=== PATIENT | male | born 2000 | race Caucasian/White ===

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

== ENCOUNTER 2025-01-21 10:20 | Emergency (ER) | payer BC, SELFPAY ==
--- OUTSIDE RECORDS SUMMARY | 2024-03-17 09:30 | XMS_ITS ---
Author Organization [facility] edicine Address [address] [place] [address] Care Team Providers Care Customer Logistics Manager Name Role Phone Camila Benavides Unavailable [phone] Allergies No Known Allergies Results Component Value Reference Range Notes Urinalysis, Routine Reviewed date:03/17/2024 01:42:10 PM Interpretation: Performing Lab: Notes/Report: Urine-Color yellow Appearance clear Specific [place] >=1.030 pH 6.5 Glucose neg Protein neg [...] N/A Encounters Encounter Location Date Provider Diagnosis [facility] [address] [place] [address] 03/17/2024 Camila Benavides Pre-employment health screening examination [...] * Jori FERNANDES HDOB:2000 (24 yo M)Acc No.[id number]:03/17/2024 PRE EMP HWM Patient: Jori GAINES Provider: Chau Benavides NP :2000 A ge:23 Y S ex:Male Date:03/17/2024 Address:[address] [place] [phone] Subjective: * Chief Complaints: * 1 . GT-IBC DH PRE EMP PHYS w/ PDT no [...] * A ppearance clear * S pecific [place] >=1.030 * p H 6.5 * G [...] Test, HEARS HEARING SCREEN, VISIS VISION SCREEN, 43558 URINALYSIS, AUTO, W/O SCOPE, Modifiers: QW * Follow Up: Bj morales for PDT * Billing Information: * Visit Code: * Procedure Codes: PHYSI Physical Exam. BTE Physical Demands Test. HEARS HEARING SCREEN. VISIS VISION SCREEN. 92525 URINALYSIS, AUTO, W/O SCOPE. Modifiers: QW * Electronic signature of Yasemin Benavides on 01/21/2025 at 09:28 AM CDT Sign off status: Pending * Provider: Chau Benavides, LIGHT RAIL VEHICLE OPERATOR Date: 03/17/2024 Generated for Kennedii rusty/Faibis/eTransmitting on: 01/21/2025 09:28 AM CDT History and Physical Notes * HPI (History of Present Illness) Category Sub-Category Detail Notes Category Not es ADDITIONAL COMPLAINTS Patien t presents for pre-employment physical evaluation. Medical history forms and any accompanying health records are reviewed with the patients. Examination Category Sub-Category Detail Notes Category Not es General Examination GENERAL APPEARANCE: in no ac [place] distress, well developed, well nourished HEAD: normocephalic, [...]
--- NOTE | 2025-01-21 10:22 | ECG_ITS ---
APPROVED REPORT Exam: Resting ECG HR:102 bpm ECG Measurements Heart Rate 102 AXES AK 154 P 53 QRSd 100 QRS 42 QT 315 T 59 QTc 374 Conclusion Sinus tachycardia without acute ST or T wave changes concerning for ischemia Electronically signed by : Leila Dwyer, 01/21/2025 17:52:02
[2025-01-21 10:24] VITALS: BP 135/72; PULSE 100; PULSE 103; RESP 16; TEMP 37; O2SAT 100; BMI 39.9
--- OUTSIDE RECORDS SUMMARY | 2025-01-21 10:28 | XMS_ITS | Patient Health Record ---
Author Organization [facility] edicine Address [address] [place] [address] Care Team Providers Care Sleeping Car Porter Name Role Phone Camila Benavides Unavailable [phone] Allergies No Known Allergies Results Component Value Reference Range Notes Urinalysis, Routine Reviewed date:03/17/2024 01:42:10 PM Interpretation: Performing Lab: Notes/Report: Urine-Color yellow Appearance clear Specific Street >=1.030 pH 6.5 Glucose neg Protein neg Occult Blood neg Bilirubin neg Urobilinogen,Semi-Qn 1.0 Nitrite, Urine neg Ketones neg WBC Esterase neg Reason For Referral No Information Social History Tobacco Use: Social History Observation Description Date Details (start date - stop date) Unknown Smoking Question Answer Notes Smoking Status: Uses tobacco in other forms vape s Vital Signs Heart Rate 91 /min 03/17/2024 Temperature 97.4 degrees Fahrenheit 03/17/2024 Respiratory Rate 18 /min 03/17/2024 Blood pressure diastolic 68 mm Hg 03/17/2024 Oximetry 98 % 03/17/2024 Height 70 in 03/17/2024 Blood pressure systolic 119 mm Hg 03/17/2024 Weight 279.2 lbs 03/17/2024 BMI 40.06 kg/m2 03/17/2024 Procedures Procedure Date Ordered Date Performed Result Body Sit e Vision Screening 03/17/2024 N/A BTE 03/17/2024 03/17/2024 N/A Hearing Screening 03/17/2024 03/17/2024 N/A Encounters Encounter Location Date Provider Diagnosis [employer] [facility] [address] [place] [address] 03/17/2024 Camila Benavides Pre-employment health screening examination Z02.1 Assessments Encounter Date Diagnosis (ICD Code) Assessment Notes Treatment Notes Treatment Clinical Notes Section Notes 03/17/2024 Pre-employment health screening examination (ICD-10 - Z02.1) Plan Of Treatment Pending Test Test Name Order Date Vision Screening 03/17/2024 BTE 03/17/2024 Insurance Providers Payer Name Payer Address Payer Phone Subscriber Number Group Number Insured Name Patient Relationship to Insured Coverage Start Date Coverage End Date Mo[employer]ica Pre-[employer] [place]/Gregg Jori Gonzalez Self - patient is the insured Medical (General) History Surgical History Surgery Date(Month/Year) broken right elbow with plate high schoo l
--- NOTE | 2025-01-21 10:36 | XR_ITS ---
FINAL REPORT TECHNIQUE: Single view chest CLINICAL HISTORY: left sided chest pain FINDINGS: A single view of the chest was obtained. The heart and mediastinum are within normal limits. The lungs are clear. There is no pneumothorax. IMPRESSION: No acute cardiopulmonary process. Reviewed, Interpreted and Dictated by Jeramie Quiñones MD Transcribed by Eladia Hancock Authenticated and [facility]
--- NOTE | 2025-01-21 10:37 | ED_ITS ---
<Statement entered by Leila Dwyer DO - 01/21/25 17:05> I was consulted by the GT, and we discussed the complexity of problems being addressed. I approve the treatment and management plan for this patient's care in the emergency department, thus performing a substantial portion of the medical decision making. Leila Dwyer DO Discharge Plan Disposition Patient Disposition: Home, Self-Care Condition: Good Prescriptions Prescriptions: No Action ibuprofen 800 mg tablet 800 mg PO Q8H PRN (Reason: pain) Qty: 30 1RF Referrals Follow up/Referrals: Provider,Referral, MD [Primary Care Provider, Medical] - See instructions Activity Restrictions/Add. Instructions Additional Instructions/Restrictions: Please follow-up with your PCP in the coming days, utilize ibuprofen Tylenol and other anti-inflammatory medication as needed for symptomatic leaf, please return to the emergency department any worsening signs or symptoms to include chest pain nausea vomiting, shortness of breath that does not improve with rest or medications. Clinical Impressions Clinical Impression: Atypical chest pain, Costochondritis Instructions Patient Instructions: DI for Atypical Chest Pain, DI for Costochondritis Print Language Print Language: Burmese Discharge ED Provider: Leila Dwyer General Adult HPI General Chief complaint: Chest Pain Stated complaint: Chest Pain Time Seen by Provider: 01/21/25 10:23 Mode of Arrival: Ambulatory Source of Information: Patient Limitations: No Limitations History of Present Illness HPI narrative: 24-year-old male presents to the emergency department with chest pain that is left-sided, substernal, with some radiation into his left arm, no trauma or injury per history, patient states this started around 6 AM , pain at maximal was a 1-2 out of 10, currently at 1-2 out of 10, when he is came home, he states certain positions make it better, he denies any fever chills cough congestion sore throat recent illness, denies any shortness of breath, nausea vomiting constipation diarrhea no abdominal pain, no urinary symptomatology, patient is a current every day smoker (vapes), denies any alcohol or drug use, no distress vitals notable for tachycardia otherwise unremarkable. Patient has no other real relevant past medical history, takes no other medications at home, no family history of coronary artery disease. Onset (ago): hour(s) Related Data Previous Rx's ?Medication ?Instructions ?Recorded ibuprofen 800 mg tablet 800 mg PO Q8H PRN pain #30 t abs 08/18/19 Allergies Allergy/AdvReac Type Severity Reaction Status Date / Time No Known Allergies Allergy Verified 12/04/19 11:19 [facility] Disclaimer: The information contained in this section may have been updated after the patient was seen, as this information can be updated by other users. Social History Smoking Status: Current every day smoker alcohol intake: never substance use type: denies use current occupational status: student Travel in the last 8 weeks?: None household members: family housing: house current occupational exposures/hazards: No caffeine: No Have you lived/traveled outside US in past 30 days?: No Contact w/someone who lives/traveled outside US past 30 days?: No Exposure to someone with infectious disease in past 14 days?: No Do you have a fever (greater than 100.4 F or 38 C)?: No Have you tested positive for COVID-19?: No Exposed to someone with COVID-19 in past 14 days?: No Do you have a sore throat?: No Do you have a cough?: No Do you have any weakness?: No Do you have any diarrhea?: No Are you experiencing any unusual bleeding?: No Do you have any muscle aches/pain?: No Do you have any abdominal pain?: No Are you experiencing loss of taste or smell?: No Other Medical History Have you received the Flu Vaccine for this season: No Have you received the Pneumonia Vaccine: No ROS Obtained: Yes All systems reviewed & no additional complaints except as documented Physical Exam General General appearance: alert and in no apparent distress Head Head exam: atraumatic and normocephalic Eye Eye exam: Present normal appearance, PERRL and EOMI Neck Neck exam: Present full ROM; Absent meningismus Chest Chest inspection: Present normal inspection; Absent tenderness Respiratory Respiratory exam: Absent respiratory distress, wheezes, stridor, accessory muscle use or prolonged expiratory phase Cardiovascular Cardiovascular exam: Present normal rhythm, tachycardia and other (Pulses equal and symmetric in bilateral upper and lower extremities) Abdominal Exam Abdominal exam: Absent distention, tenderness, guarding or rebound Extremities Exam Extremities exam: Absent edema Neurological Exam Neurological exam: Present alert Psychiatric Psychiatric exam: Present normal affect Skin Skin exam: Present warm and dry Medical Decision Making Medical Records Medical records reviewed: Yes I reviewed the patient's medical records. Screening: Per USPSTF and CDC recommendations, given the prevalence of disease in our region, it is our hospital?s policy to screen for HIV and viral Hepatitis for all patients aged 18 and over and those with ongoing risk factors. Armond Inquiry Pt receiving controlled substance: No Armond was queried for this patient: No Vital Signs: 01/21/25 10:24 01/21/25 10:24 01/21/25 11:00 Temperature 98.6 F Temperature Source Oral Pulse Rate 103 H 98 H Pulse Rate [Right Radial] 100 H Respiratory Rate 16 16 14 Blood Pressure 135/72 160/85 H Blood Pressure [Right Arm] 135/72 Blood Pressure Mean [Right Arm] 93 Blood Pressure Source [Right Arm] Automatic Cuff Blood Pressure Position [Right Arm] Sitting 02 Sat by Pulse Oximetry 100 100 99 Oxygen Delivery Method Room Air Lab Data Lab results reviewed: Yes I reviewed the patient's lab results. Lab Results 01/21/25 10:36: WBC 14.9 H, RBC 4.95, Hgb 14.4, Hct 44.2, MCV 89.3, MCH 29.1, MCHC 32.6, RDW 13.2, Plt Count 256, MPV 11.2 H, Neut % (Auto) 77.6, Lymph % (Auto) 15.4, Bertie % (Auto) 5.6, Eos % (Auto) 0.9, Baso % (Auto) 0.3, Neut # (Auto) 11.6 H, Lymph # (Auto) 2.3, Bertie # (Auto) 0.8, Eos # (Auto) 0.1, Baso # (Auto) 0.1, D-Dimer 0.48, Sodium 139, Potassium 4.0, Chloride 98, Carbon Dioxide 27, Anion Gap 18.0 H, BUN 16, Creatinine 1.20, Estimated Creat Clear 166, Estimated GFR 75, Est GFR ( Amer) 91, Glucose 89, Calcium 9.5, Total Bilirubin 0.8, AST 31, ALT 26, Alkaline Phosphatase 61, Troponin I < 0.01, NT-Pro-B Natriuret Pep < 20.0, Total Protein 8.8 H, Albumin 5.0, Globulin 3.8 H, Albumin/Globulin Ratio 1.3 01/21/25 10:36 01/21/25 10:36 Orders (Tests/Meds): ED MEDICATIONS Discontinued Medications Generic Name Dose Route Start Last Admin Trade Name Freq PRN Reason Stop Dose Admin Aspirin 325 mg 01/21/25 10:36 01/21/25 10:48 Aspirin 325mg Tablet PO 01/21/25 10:37 325 mg ONCE ONE Administration ORDERS Category Date Time Status XR chest portable Stat Exams 01/21/25 10:36 Completed Complete Blood Count Auto Diff Stat Lab 01/21/25 10:36 Completed Comprehensive Metabolic Panel Stat Lab 01/21/25 10:36 Completed D-Dimer Stat Lab 01/21/25 10:36 Completed HIV Combo Stat Lab 01/21/25 10:36 Received Hepatitis C Ab Qual. W/ RFX Stat Lab 01/21/25 10:36 Received NT Pro Brain Natriuretic Pep. Stat Lab 01/21/25 10:36 Completed Troponin I Q3H Lab 01/21/25 13:45 Ordered Troponin I Q3H Lab 01/21/25 16:45 Ordered Troponin I Stat Lab 01/21/25 10:36 Completed Medical Decision Narrative: 24-year-old male presents to the emergency department with chest pain that started at 6 AM today, differential diagnosis include but not limited to, ACS, PE, pneumonia, costochondritis, other musculoskeletal type chest pain, gastritis, GERD, anxiety reaction, panic attack, cardiac arrhythmia, electrolyte disturbance among others. I discussed this patient's case with the attending physician Dr. Dwyer Will obtain basic laboratory studies, troponin, EKG, proBNP, D-dimer, will give 324 mg p.o. aspirin for pain. Along with the attending physician reviewed the patient's EKG at 1022, sinus tachycardia at 102 bpm WV interval generous, QT interval within normal limits there is no STEMI. D-dimer is negative at 0.48, thus ruling out VTE/PE. Initial troponin is less than 0.01, proBNP is within normal limit. I reviewed the patient's chest x-ray along the corresponding radiologic report, no acute cardiopulmonary findings. Reexamination of the patient at approximately 11:45 AM patient remained hemodynamically stable without his time in the emergency department, tachycardia has improved, chest pain is waxing and waning, currently no chest pain at the bedside, after aspirin ministration, patient is cleared to be discharged home to self-care, patient to follow-up with PCP, and follow-up with the providers in the upcoming days, patient was given strict ED return precautions. Patient and family voiced understanding and agreement with the current treatment plan/discharge plan. Ruled out ACS, PE, other cardiac causes of chest pain, as patient's pains been going on since 6 AM waxing and waning, initial troponin was within normal limits. No need for any repeat troponin, heart score is 0, most likely musculoskeletal cause of the patient's chest pain. Critical Care Critical Care Time Critical Care Time: No
[2025-01-21 10:44] LABS: Hematocrit 44.2 % (42.0-52.0); Hemoglobin 14.4 g/dL (14.1-18.0); Immature Granulocytes % 0.2 %; Mean Corpuscular HGB Conc 32.6 g/dL (31.8-35.4); Mean Corpuscular Hemoglobin 29.1 pg (27.0-31.2); Mean Corpuscular Volume 89.3 fl (80-94); Nucleated Red Blood Cells % 0 %; Platelet Count 256 K/mm3 (142-424); Red Blood Count 4.95 M/mm3 (4.60-6.20); Red Cell Distribution Width-SD 43.2 fL; White Blood Count 14.9 K/mm3 (4.8-10.8)
[2025-01-21] MEDS: ASPIRIN 325MG TABLET 325 MG PO (10:48)
[2025-01-21 10:56] LABS: Alanine Aminotransferase 26 U/L (12-78); Albumin Level 5.0 g/dl (3.5-5.0); Albumin/Globulin Ratio 1.3 (1.1-1.8); Alkaline Phosphatase 61 U/L (38-126); Anion Gap 18.0 mEq/L (5-15); Aspartate Amino Transferase 31 U/L (17-59); Bilirubin,Total 0.8 mg/dl (0.2-1.3); Blood Urea Nitrogen 16 mg/dl (9-20); Calcium 9.5 mg/dl (8.4-10.2); Carbon Dioxide 27 mmol/L (22.0-30.0); Chloride 98 mmol/L (98-107); Creatinine Clearance Estimated 166 mL/min (50-200); Creatinine,Serum 1.20 mg/dl (0.66-1.25); Estimated Glomerular Filt Rate 75 ml/min (>60); GFR (African American) 91 ML/MIN (>60); Globulin 3.8 g/dL (1.3-3.2); Glucose 89 mg/dl (74-100); Potassium 4.0 mmoL/L (3.5-5.1); Sodium 139 mmol/L (136-145); Total Protein,Serum 8.8 g/dl (6.3-8.2)
[2025-01-21 11:00] VITALS: BP 160/85; PULSE 98; RESP 14; O2SAT 99
[2025-01-21 11:01] LABS: D-Dimer 0.48 ug/mL (0.0-0.5)
[2025-01-21 11:09] LABS: NT Pro Brain Natriuretic Pep. < 20.0 pg/mL (0-125)
[2025-01-21 11:13] LABS: Troponin I < 0.01 ng/ml (0.00-0.034)
[2025-01-21 12:07] VITALS: BP 152/93; PULSE 84; RESP 15; TEMP 36.7; O2SAT 99
[2025-01-21 12:24] LABS: Hepatitis C Ab Qual. W/ RFX NEGATIVE (Negative)
== END 2025-01-21 12:14 | disposition home or self-care (01) ==
PROVIDERS: Physician Assistant; Emergency Provider Student in an Organized Health Care Education/Training Program
DX: R07.89 Other chest pain (principal); M94.0 Chondrocostal junction syndrome [Tietze]; R00.0 Tachycardia, unspecified; F17.290 Nicotine dependence, other tobacco product, uncomplicated
CPT/HCPCS: 71045; 80053; 83880; 84484; 85025; 85378; 86803; 87389; 93005; 99284

== ENCOUNTER 2025-01-26 11:40 | Outpatient (CLI) | payer BC, SELFPAY ==
--- NOTE | 2025-01-26 11:42 | XR_ITS ---
FINAL REPORT CLINICAL HISTORY: left upper arm pain COMPARISON: None FINDINGS: Two views of the left humerus show no evidence of an acute, displaced fracture or dislocation of the visualized bony architecture. The joint spaces appear normal. IMPRESSION: Unremarkable exam. Reviewed, Interpreted and Dictated by Jeramie Quiñones MD Transcribed by Rubina Kapadia Authenticated and [facility]
--- NOTE | 2025-01-26 11:42 | XR_ITS ---
FINAL REPORT CLINICAL HISTORY: left shoulder pain COMPARISON: None FINDINGS: Three views of the left shoulder show no evidence of acute displaced fracture or dislocation of the visualized bony architecture. The joint spaces appear normal. IMPRESSION: Unremarkable exam. Reviewed, Interpreted and Dictated by Jeramie Quiñones MD Transcribed by Rubina Kapadia Authenticated and [facility] [place]
--- OUTSIDE RECORDS SUMMARY | 2025-01-26 11:42 | XMS_ITS | Clinical Summary ---
Author Organization [facility] Address [address] [place] [address] Care Team Providers Care Cook Railroad Name Role Phone Masoud Figueroa M.D. Primary Care Provider [phone] Source Comments [facility] is fully rolled out with thefollowing exceptions:General Clinical Research [facility] Social History Tobacco Use Types Packs/Day Years Used Date Smoking Tobacco: Never Assessed Sex and Gender Information Value Date Recorded Sex Assigned at Not on file Legal Sex Male 5:29 AM EST Gender Identity Not on file Sexual Orientation Not on file Plan of Treatment Health Maintenance Due Date Last Done Comments MMR IMMUNIZATION (1 of 1 - S tandard series) 2002 DTAP/Tdap/Td IMMUNIZATION (1 - Tdap) 2008 VARICELLA IMMUNIZATION (1 of 2 - 13+ 2-dose series) 2014 HPV IMMUNIZATION (1 - Male 3 -dose series) 2016 MENINGOCOCCAL B VACCINE (1 o f 2 - Standard) 2017 HEPATITIS B IMMUNIZATION (1 of 3 - 19+ 3-dose series) 2020 COVID-19 Vaccine (1 - 2023-2 5 season) 2024 AMB SEASONAL FLU VACCINE (#1) 03/09/2025 HIB IMMUNIZATION Aged Out No longer e ligible based on patient's age to complete this topic IPV IMMUNIZATION Aged Out No longer e ligible based on patient's age to complete this topic MCV4 IMMUNIZATION Aged Out No longer eligible based on patient's age to complete this topic PNEUMOCOCCAL IMMUNIZATION Aged Out No longer eligible based on patient's age to complete this topic Respiratory Syncytial Virus (RSV) <20mo Aged Out No longer eligible b ased on patient's age to complete this topic Insurance MINDA BRASWELL Care Teams Cook Railroad Relationship Specialty Start Date End Date Masoud Figueroa M.D. [address] [place] [address] [address] [place] [address] PCP - General 07/16/08
[2025-01-26 13:32] LABS: Hematocrit 44.4 % (42.0-52.0); Hemoglobin 14.6 g/dL (14.1-18.0); Immature Granulocytes % 0.4 %; Mean Corpuscular HGB Conc 32.9 g/dL (31.8-35.4); Mean Corpuscular Hemoglobin 29.4 pg (27.0-31.2); Mean Corpuscular Volume 89.5 fl (80-94); Nucleated Red Blood Cells % 0 %; Platelet Count 228 K/mm3 (142-424); Red Blood Count 4.96 M/mm3 (4.60-6.20); Red Cell Distribution Width-SD 43.3 fL; White Blood Count 11.4 K/mm3 (4.8-10.8)
[2025-01-26 13:58] LABS: C-Reactive Protein 6.5 mg/L (0-4)
[2025-01-26 14:10] LABS: 25-OH Vitamin D, Total 18.6 ng/mL (30-100)
[2025-01-26 14:13] LABS: Free T4 (Free Thyroxine) 1.16 ng/dl (0.78-2.19)
[2025-01-26 14:26] LABS: Thyroid Stimulating Hormone 1.59 uIU/mL (0.465-4.68)
[2025-01-26 14:45] LABS: Vitamin B12 520 pg/mL (239-931)
== END 2025-01-26 23:59 | disposition home or self-care (01) ==
LOC: RAD 11:41
PROVIDERS: PCP Nurse Practitioner Family; Visit Provider Nurse Practitioner Family
DX: M25.512 Pain in left shoulder (principal); M79.622 Pain in left upper arm; M94.0 Chondrocostal junction syndrome [Tietze]; R07.89 Other chest pain; M62.830 Muscle spasm of back; G47.33 Obstructive sleep apnea (adult) (pediatric); R53.83 Other fatigue
CPT/HCPCS: 73030; 73060; 82306; 82607; 84439; 84443; 85025; 85651; 86140

== ENCOUNTER 2025-02-04 07:57 | Outpatient (RCR) | payer BC, SELFPAY ==
--- NOTE | 2025-02-04 08:57 | HMH.OTOPEV ---
OT Inpatient Evaluation Rehab OT Outpatient Eval Start: 02/04/25 08:06 Freq: Status: Active Protocol: Document 02/04/25 08:06 PRASHANT (Rec: 02/04/25 08:57 PRASHANT [id number]) E-signed By Carmen Ly, OT Outpatient Therapy Subjective History Subjective History Pt is a 24 yr old male who presents to initial OT evaluation due to L shoulder pain. 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 Pt reported they had no significant injury or accident for pain. Pt reported pain has been coming on for quite some time now. pt reported they had an X-ray and no significant findings. Pt reported they are R hand dom. pt reported they have pain that radiates from middle of chest down to arm. pt reported sleep is impacted. ST. Palpation Tenderness: decrease palpation tenderness in L shoulder at AC and SC joint 2. ROM: L shoulder Abd:170, Flex:175, IR- 70 3. Strength: L shoulder 4-/5 MMT 4. Endurance: completion of TE for 15 mins prior to rest 5. Improve tolerance to work activities 6. Decrease subjective pain: 5/10 at worst 7. Patient to be Ind with HEP: [place] 8. Improve Quick Dash Score: Activities: 14 or below, Work: 6 or below LT. Palpation Tenderness: decrease palpation tenderness in L shoulder at AC and SC joint 2. ROM: L shoulder Abd:180, Flex:180 3. Strength: L shoulder 4+/5 MMT 4. Endurance: completion of TE for 15 mins prior to rest 5. Restore ability to lift objects to waist level 6. Return to recreational activities 7. Improve tolerance to work activities 8. Decrease subjective pain: 3/10 at worst 9. Patient to be Ind with advanced HEP: advanced strengthening and exercising 10. Improve Quick Dash Score: Activities: 12 or below, Work: 4 or below New diagnosis of No cancer in past 12 months? Chief Complaint Pain,Clicks,Weakness,Decreased Clinical Project Manager Strength Symptom Type Ache Symptoms Relieved By Rest/Positioning,OTC Meds Symptoms Aggravated Physical Activity,Lifting By Prior Functional None Limitations Current Functional Reaching,Lifting,Sleeping,Recreation Activity Limitations Symptom Description Pain at Rest,Activity Dependent Level of pain today 1 (0-10) Pain scale - at its 0 best (0-10) Pain scale - at its 6 worst (0-10) Shoulder/Elbow Eval Shoulder Objective Measurements Posture Shoulder Posture (L) Rounded,(R) Rounded Sitting Position Shoulder Posture (L) Rounded,(R) Rounded Standing Position Shoulder ROM Left Shoulder ROM Pain Limitations Shoulder Abduction 160 Active Range of Motion (degrees) Shoulder Flexion 170 Active Range of Motion (degrees) Query Text: Shoulder External 70 Rotation Active Range of Motion ( degrees) Shoulder Internal 65 Rotation Active Range of Motion ( degrees) pain with active ROM left shoulder exam standard pain with passive left ROM shoulder exam standard full ROM shoulder left exam standard Shoulder MMT Shoulder Abduction 3 Fair Strength Grade Shoulder Flexion 3 Fair Strength Grade Shoulder External 3 Fair Rotation Strength Grade Shoulder Internal 3 Fair Rotation Strength Grade Shoulder Strength Sitting Patient Testing Position Shoulder Special Tests Acromioclavicular Positive Left Joint Compression Test Sternoclavicular Positive Left Joint Stress Test Elbow Objective Measurements QuickDASH Activities Please rate your ability to do the following activities in the last week by selecting the number below the appropriate response. 1. Open a tight or No difficulty new jar. 2. Do heavy No difficulty urology surgeon (e. g., wash chapman, floors). 3. Carry a shopping No difficulty bag or briefcase. 4. Wash your back. No difficulty 5. Use a knife to No difficulty cut food. 6. Recreational No difficulty activities in which you take some force or impact through your arm, shoulder, or hand (e.g., golf, hammering, tennis, etc.). 7. During the past Not at all week, to what extent has your arm, shoulder or hand problem interfered with your normal social activities with family, friends , neighbors or groups? 8. During the past Slightly limited week, were you limited in your work or other regular daily activites as a result of your arm, shoulder or hand problem? 9. Arm, shoulder or Moderate hand pain. 10. Tingling (pins None and needles) in your arm, shoulder or hand. 11. During the past Mild difficulty week, how much difficulty have you had sleeping because of the pain in your arm, shoulder or hand? Quick DASH 15 Work Module (optional) The following questions ask about the impact of your arm, shoulder or hand problem on your ability to work (including homemaking if that is your main work role). Please indicate what [employer] your job/work is: Do you work? Yes 1. Using your usual No difficulty technique for your work? 2. Doing your usual Mild difficulty work because of arm, shoulder or hand pain? 3. Doing your work Mild difficulty as well as you would like? 4. Spending your Mild difficulty usual amount of time doing your work? Quick Dash Work 7 Module Score OT Outpatient Assessment Impairments Problems/Impairments Palpation Tenderness,Impaired Range of Motion,Impaired Strength,Impaired Endurance,Impaired Lifting,Impaired Recreational Activities,Impaired Work Activities, Subjective C/O Pain Prognosis Rehab Potential Good Clinical Impression Consistent with Yes Diagnosis Short Term Goals Number of Weeks 3 Decreased Palpation Yes: decrease palpation tenderness in L shoulder at AC Tenderness and SC joint Increase Range of Yes: L shoulder Abd:170, Flex:175, IR- 70 Motion Increase Strength Yes: L shoulder 4-/5 MMT Increase Endurance Yes: completion of TE for 15 mins prior to rest Improve Tolerance to Yes Work Activities Decrease Subjective Yes: 5/10 at worst C/O Pain Patient to be Ind w/ Yes: [place] HEP Improve Quick Dash Yes: Yes, activities: 14 or below, work 6 or below Score Fpc Goals Number of Weeks 6 Decreased Palpation Yes Tenderness Increase Range of Yes: L shoulder: Abd- 180, Flex: 180 Motion Increase Strength Yes: L shoulder 4+/5 MMT Increase Endurance Yes: completion of TE 20 mins prior to rest Restore Ability to Yes Lift Objects to Waist Level Return to Yes Recreational Activities Improve Tolerance to Yes Work Activities Decrease Subjective Yes: 3/10 at worst C/O Pain Patient to be Ind w/ Yes: advanced strengthening and exercises Advanced HEP Improve Quick Dash Yes: Yes, Activities: 12 or below, Work: 4 or below Score Outpatient Therapy Plan of Care Treatment Plan May Include Therapeutic Exercise Yes Including Home Exercise Program Manual Therapy Yes Techniques Neuromuscular Re- Yes education Therapeutic Yes Activities to Return to Previous Functional/Work Level ADL/Self Care Yes Education Thermal Modalities Yes Electrical Yes Stimulation Ultrasound/ Yes Phonophoresis Iontophoresis Yes Parrafin Yes Orthotics/Bracing/ Yes Splinting Group Therapy for Yes Medicare Eval/Re-Eval Yes Frequency Times per week 1-2x/wk Duration Number of Weeks 6 wks Addendums This patient is a No candidate for social or vocational rehab ? Patient/Guardian Yes verbally acknowledges understanding of treatment program and consents to further treatment? Patient/Guardian Yes verbally acknowledges understanding of diagnosis, prognosis and goals for treatment? Eval Complexity OT Charge 63369 - Moderate Complexity PHYSICIAN CERTIFICATION: I certify the specified therapy services for Jori Grey Carlos are required, authorized, and reviewed every 30 days.
== END 2025-02-04 23:59 | disposition home or self-care (01) ==
LOC: OT 07:57
PROVIDERS: Visit Provider Nurse Practitioner Family
DX: M79.622 Pain in left upper arm (principal); M25.512 Pain in left shoulder
CPT/HCPCS: 97166

== ENCOUNTER 2025-02-24 11:00 | Outpatient (RCR) | payer BC, SELFPAY | END 2025-02-24 23:59 | disposition home or self-care (01) | LOC: OT 11:00 | PROVIDERS: Visit Provider Nurse Practitioner Family | DX: M25.512 Pain in left shoulder (principal) | CPT/HCPCS: 97014; 97110; 97140; G0283 ==

== ENCOUNTER 2025-02-25 10:52 | Outpatient (CLI) | payer BC, SELFPAY ==
--- NOTE | 2025-02-25 10:56 | XR_ITS ---
FINAL REPORT TECHNIQUE: Supine and upright views of the abdomen were obtained. CLINICAL HISTORY: abd pain COMPARISON: None FINDINGS: SPINE AND UPRIGHT, ABDOMEN: There is mild scoliosis present measuring 10 degrees and convex to the right. The bowel gas pattern is nonspecific, with mild to moderate stool in the right colon. No abnormal calcifications are identified. IMPRESSION: Nonspecific bowel gas pattern with mild to moderate stool in the right colon. Reviewed, Interpreted and Dictated by Jet Jessica MD Transcribed by Nadia Pagan Authenticated and [facility]
--- OUTSIDE RECORDS SUMMARY | 2025-02-25 11:09 | XMS_ITS | Clinical Summary ---
Author Organization [facility] Address [address] [place] [address] Care Team Providers Care Medical Case Worker Name Role Phone Masoud Figueroa M.D. Primary Care Provider [phone] Source Comments [facility] is fully rolled out with thefollowing exceptions:General Clinical Research [facility] Social History Tobacco Use Types Packs/Day Years [...] season) 2024 AMB SEASONAL FLU VACCINE (#1) 05/09/2025 HIB IMMUNIZATION Aged Out No longer e [...] to complete this topic Insurance [facility] [place] Address: [facility] [id number] [place] [address] Care Teams Medical Case Worker Relationship Specialty Start Date End Date Masoud Figueroa M.D. [address] [place] [address] [address] [place] [address] PCP - General 07/16/08
== END 2025-02-25 23:59 | disposition home or self-care (01) ==
LOC: RAD 10:53
PROVIDERS: PCP Nurse Practitioner Family; Visit Provider Nurse Practitioner Family
DX: K59.00 Constipation, unspecified (principal); K21.9 Gastro-esophageal reflux disease without esophagitis; R07.9 Chest pain, unspecified; R93.3 Abnormal findings on diagnostic imaging of other parts of digestive tract
CPT/HCPCS: 74019

== ENCOUNTER 2025-03-02 08:08 | Outpatient (CLI) | payer BC, SELFPAY ==
--- OUTSIDE RECORDS SUMMARY | 2024-03-17 09:30 | XMS_ITS ---
Author Organization [employer] [facility] edicine Address [address] [place] [address] Care Team Providers Care Rotary Screen Printing Machine Operator Name Role Phone Camila Benavides Unavailable [phone] Allergies No Known Allergies Results Component Value Reference Range Notes Urinalysis, Routine Reviewed date:03/17/2024 01:42:10 PM Interpretation: Performing Lab: Notes/Report: Urine-Color yellow Appearance clear Specific [place] >=1.030 pH 6.5 Glucose neg Protein neg [...] N/A Encounters Encounter Location Date Provider Diagnosis [employer] [facility] [address] [facility] [place] [address] 03/17/2024 Camila Benavides Pre-employment health screening examination [...] * Jori FERNANDES HDOB:2000 (24 yo M)Acc No.[id number]:03/17/2024 PRE EMP HWM Patient: Jori GAINES Provider: Chau Benavides NP :2000 A ge:23 Y S ex:Male Date:03/17/2024 Address:[address] [place] [phone] Subjective: * Chief Complaints: * 1 . [...] * A ppearance clear * S pecific [place] >=1.030 * p H 6.5 * G [...] Test, HEARS HEARING SCREEN, VISIS VISION SCREEN, 03221 URINALYSIS, AUTO, W/O SCOPE, Modifiers: QW * Follow Up: Bj morales for PDT * Billing Information: * Visit Code: * Procedure Codes: PHYSI Physical Exam. BTE Physical Demands Test. HEARS HEARING SCREEN. VISIS VISION SCREEN. 35932 URINALYSIS, AUTO, W/O SCOPE. Modifiers: QW * Electronic signature of Yasemin Benavides on 03/02/2025 at 07:12 AM CDT Sign off status: Pending * Provider: Chau Benavides, INFORMATICS NURSE SPECIALIST Date: 03/17/2024 Generated for Reagan ojeda/Faibis/eTransmitting on: 0 03/02/2025 07:12 AM CDT History and Physical Notes * HPI (History of Present Illness) Category Sub-Category Detail Notes Category Not es ADDITIONAL COMPLAINTS Patien t presents for pre-employment physical evaluation. Medical history forms and any accompanying health records are reviewed with the patients. Examination Category Sub-Category Detail Notes Category Not es General Examination GENERAL APPEARANCE: in no ac [place] distress, well developed, well nourished HEAD: normocephalic, [...]
--- NOTE | 2025-03-02 08:00 | US_ITS ---
FINAL REPORT TECHNIQUE: Sonographic images of the abdomen were obtained in all four quadrants. CLINICAL HISTORY: abd pain COMPARISON: None FINDINGS: LIVER: Homogeneous. No focal hepatic lesion or intrahepatic biliary dilatation. GALLBLADDER: There is sludge present in the gallbladder, without shadowing stones. No pericholecystic fluid collection or gallbladder wall thickening. The common duct measures 2 mm. This is within normal limits for age. PANCREAS: Not well-seen secondary to overlying bowel gas. RIGHT KIDNEY: 9.4 cm. No hydronephrosis, mass or stone. LEFT KIDNEY: 11 cm. No hydronephrosis, mass or stone. SPLEEN: 12.1 cm. No focal splenic lesion. AORTA/IVC: No abdominal aortic aneurysm. Visualized IVC within normal limits. OTHER: No ascites. IMPRESSION: Sludge is present in the gallbladder without evidence of shadowing stones or biliary ductal dilatation. Reviewed, Interpreted and Dictated by Hui Morales MD Transcribed by Nadia Pagan Authenticated and [facility]
--- OUTSIDE RECORDS SUMMARY | 2025-03-02 08:12 | XMS_ITS | Clinical Summary ---
Author Organization [facility] Address [address] [place] [address] Care Team Providers Care Security Threat Analyst Name Role Phone Masoud Figueroa M.D. Primary Care Provider [phone] [phone] Source Comments [facility] is fully rolled out with thefollowing exceptions:General Clinical Research [facility] Social History Tobacco Use Types Packs/Day Years [...] this topic Insurance MINDA BRASWELL Care Teams Security Threat Analyst Relationship Specialty Start Date End Date Masoud Figueroa M.D. [address] [place] [address] E [address] [place] Richardson [id number] PCP - General 07/16/08
--- OUTSIDE RECORDS SUMMARY | 2025-03-02 08:12 | XMS_ITS | Patient Health Record ---
Author Organization [facility] Address [address] [place] [address] Care Team Providers Care Supervisor Hide House Name Role Phone Camila Benavides Unavailable [phone] Allergies No Known Allergies Results Component Value Reference Range Notes Urinalysis, Routine Reviewed date:03/17/2024 01:42:10 PM Interpretation: Performing Lab: Notes/Report: Urine-Color yellow Appearance clear Specific [place] >=1.030 pH 6.5 Glucose neg Protein neg [...] Ordered Date Performed Result Body Sit e Hearing Screening 03/17/2024 03/17/2024 N/A BTE 03/17/2024 03/17/2024 N/A Vision Screening 03/17/2024 N/A Encounters Encounter Location Date Provider Diagnosis [facility] [address] [place] [address] 03/17/2024 Camila Benavides Pre-employment health screening examination [...] Start Date Coverage End Date Mojica Pre-Emp [place] Santos/Gregg [phone] Jori Gonzalez Self - patient is the insured Medical (General) History Surgical History Surgery Date(Month/Year) broken right elbow with plate high schoo l
== END 2025-03-02 23:59 ==
LOC: RAD 08:09
PROVIDERS: PCP Nurse Practitioner Family; Visit Provider Nurse Practitioner Family
DX: R10.9 Unspecified abdominal pain (principal); R93.2 Abnormal findings on diagnostic imaging of liver and biliary tract
CPT/HCPCS: 76700

== ENCOUNTER 2025-03-13 09:56 | Outpatient (CLI) | payer BC, SELFPAY ==
--- OUTSIDE RECORDS SUMMARY | 2024-03-17 09:30 | XMS_ITS ---
Author Organization [facility] edicine Address [address] [place] [address] Care Team Providers Care Central Sterile Tech Name Role Phone Camila Benavides Unavailable [phone] Allergies No Known Allergies Results Component Value Reference Range Notes Urinalysis, Routine Reviewed date:03/17/2024 01:42:10 PM Interpretation: Performing Lab: Notes/Report: Urine-Color yellow Appearance clear Specific [place] >=1.030 pH 6.5 Glucose neg Protein neg Occult Blood neg Bilirubin neg Urobilinogen,Semi-Qn 1.0 Nitrite, Urine neg Ketones neg WBC Esterase neg REASON FOR VISIT GT-IBC PRE EMP PHYS w/ PDT no DOT D/S, * Moijca Pre Emp NO DRUG SCREEN, * Mojica [...] N/A Encounters Encounter Location Date Provider Diagnosis [facility] [address] [place] [address] 03/17/2024 Camila Benavides Pre-employment health screening examination [...] * Jori FERNANDES HDOB:2000 (24 yo M)Acc No.[id number]:03/17/2024 PRE EMP HWM Patient: Jori GAINES Provider: Chau Benavides NP :2000 A ge:23 Y S ex:Male Date:03/17/2024 Address:[address] [place] [phone] Subjective: * Chief Complaints: * 1 . [...] * A ppearance clear * S pecific [place] >=1.030 * p H 6.5 * G [...] Test, HEARS HEARING SCREEN, VISIS VISION SCREEN, 12558 URINALYSIS, AUTO, W/O SCOPE, Modifiers: QW * Follow Up: Bj morales for PDT * Billing Information: * Visit Code: * Procedure Codes: PHYSI Physical Exam. BTE Physical Demands Test. HEARS HEARING SCREEN. VISIS VISION SCREEN. 55593 URINALYSIS, AUTO, W/O SCOPE. Modifiers: QW * Electronic signature of Yasemin Benavides on 03/13/2025 at 08:58 AM CDT Sign off status: Pending * Provider: Chau Benavides, MAIL PROCESSOR Date: 03/17/2024 Generated for Kennedii rusty/Famyrag/eTransmitting on: 03/13/2025 08:58 AM CDT History and Physical Notes * [...]
--- OUTSIDE RECORDS SUMMARY | 2025-03-13 09:58 | XMS_ITS | Patient Health Record ---
Author Organization [facility] Address [address] [place] [address] Care Team Providers Care Microcomputer Technician Name Role Phone Camila Benavides Unavailable [phone] Allergies No Known Allergies Results Component Value Reference Range Notes Urinalysis, Routine Reviewed date:03/17/2024 01:42:10 PM Interpretation: Performing Lab: Notes/Report: Urine-Color yellow Appearance clear Specific [place] >=1.030 pH 6.5 Glucose neg Protein neg [...] N/A Encounters Encounter Location Date Provider Diagnosis [facility] [address] [place] [address] 03/17/2024 Camila Benavides Pre-employment health screening examination [...] Start Date Coverage End Date Mojica Pre-Emp [place] Santos/Gregg Jori Gonzalez Self - patient is the insured Medical (General) History Surgical History Surgery Date(Month/Year) broken right elbow with plate high schoo l
--- OUTSIDE RECORDS SUMMARY | 2025-03-13 09:58 | XMS_ITS | Clinical Summary ---
Author Organization [facility] Address [address] [place] [address] Care Team Providers Care Notcher Name Role Phone Masoud Figueroa M.D. Primary Care Provider [phone] Source Comments [facility] is fully rolled out with thefollowing exceptions:General Clinical Research [facility] Social History Tobacco Use Types Packs/Day Years [...] of 3 - 19+ 3-dose series) 2020 AMB SEASONAL FLU VACCINE (#1) 03/09/2025 COVID-19 Vaccine ( - 2023-2 5 season) 2025 HIB IMMUNIZATION Aged Out No longer e [...] this topic Insurance MINDA BRASWELL Care Teams Notcher Relationship Specialty Start Date End Date Masoud Figueroa M.D. [address] [place] [address] [address] [place] Richardson [id number] PCP - General 07/16/08
--- NOTE | 2025-03-13 10:00 | NM_ITS ---
FINAL REPORT CLINICAL HISTORY: gallbladder sludge, abd pain COMPARISON: None FINDINGS: Sequential anterior projection images of the abdomen were obtained after the intravenous injection of 8.23 mCi technetium 99m Choletec. There is normal uptake of radiotracer by the liver. The bile ducts are visualized by 10 minutes. Gallbladder activity is seen by 5 minutes. Bowel activity is noted by 45 minutes. After 1 hour, 8.23 ?g of CCK was injected intravenously for calculation of gallbladder ejection fraction. The gallbladder ejection fraction is 96%, which is within normal limits. IMPRESSION: No evidence of cystic duct or bile duct obstruction. Normal gallbladder ejection fraction of 96%. Reviewed, Interpreted and Dictated by Hui Morales MD Transcribed by Nadia Pagan Authenticated and [facility]
[2025-03-13] MEDS: SINCALIDE 2.5 MCG in 0.9 % SODIUM CHLORIDE 50 ML 100 MCG IV (11:54)
[2025-03-13] MEDS: SODIUM CHLORIDE 0.9% 10ML SYR (RAD ONLY) 10 ML IV (11:59)
[2025-03-13] MEDS: ISOTOPE CHOLETECH;1 DOSE (UP TO 15 MCI) IV (11:59)
== END 2025-03-13 23:59 | disposition home or self-care (01) ==
LOC: RAD 09:56
PROVIDERS: PCP Nurse Practitioner Family; Visit Provider Nurse Practitioner Family
DX: K21.9 Gastro-esophageal reflux disease without esophagitis (principal); K82.8 Other specified diseases of gallbladder; R10.9 Unspecified abdominal pain; R07.9 Chest pain, unspecified
CPT/HCPCS: 78227; A9537; J2805

== ENCOUNTER 2025-03-23 11:15 | Outpatient (CLI) | payer BC, SELFPAY ==
--- OUTSIDE RECORDS SUMMARY | 2025-03-23 11:17 | XMS_ITS | Clinical Summary ---
Author Organization [facility] Address [address] [place] [address] Care Team Providers Care Data Recovery Planner Name Role Phone Masoud Figueroa M.D. Primary Care Provider [phone] [phone] Source Comments [facility] is fully rolled out with thefollowing exceptions:General Clinical Research [facility] Social History Tobacco Use Types Packs/Day [...] this topic Insurance MINDA BRASWELL Care Teams Data Recovery Planner Relationship Specialty Start Date End Date Masoud Figueroa M.D. [address] [place] [address] [address] [place] Richardson [id number] PCP - General 07/16/08
[2025-03-23 12:06] LABS: Hematocrit 42.5 % (42.0-52.0); Hemoglobin 14.0 g/dL (14.1-18.0); Immature Granulocytes % 0.1 %; Mean Corpuscular HGB Conc 32.9 g/dL (31.8-35.4); Mean Corpuscular Hemoglobin 29.2 pg (27.0-31.2); Mean Corpuscular Volume 88.5 fl (80-94); Nucleated Red Blood Cells % 0 %; Platelet Count 236 K/mm3 (142-424); Red Blood Count 4.80 M/mm3 (4.60-6.20); Red Cell Distribution Width-SD 41.5 fL; White Blood Count 8.7 K/mm3 (4.8-10.8)
[2025-03-23 12:27] LABS: Alanine Aminotransferase 22 U/L (12-78); Albumin Level 4.6 g/dl (3.5-5.0); Alkaline Phosphatase 61 U/L (38-126); Anion Gap 13.5 mEq/L (5-15); Aspartate Amino Transferase 26 U/L (17-59); Bilirubin,Direct 0.1 mg/dl (0.0-0.4); Bilirubin,Indirect 0.4 mg/dL (0.0-0.9); Bilirubin,Total 0.5 mg/dl (0.2-1.3); Bilirubin,Unconjugated 0.4 mg/dL (0.0-1.1); Blood Urea Nitrogen 13 mg/dl (9-20); Calcium 9.5 mg/dl (8.4-10.2); Carbon Dioxide 26 mmol/L (22.0-30.0); Chloride 103 mmol/L (98-107); Cholesterol 154 mg/dl (140-200); Creatinine,Serum 0.90 mg/dl (0.66-1.25); Estimated Glomerular Filt Rate 105 ml/min (>60); GFR (African American) 127 ML/MIN (>60); Glucose 74 mg/dl (74-100); HDL Cholesterol 51 mg/dl (40-60); Magnesium 1.8 mg/dl (1.6-2.3); Potassium 4.5 mmoL/L (3.5-5.1); Sodium 138 mmol/L (136-145); Total Protein,Serum 7.5 g/dl (6.3-8.2); Triglycerides 104 mg/dl (30-150)
[2025-03-23 12:55] LABS: Free T4 (Free Thyroxine) 1.33 ng/dl (0.78-2.19)
[2025-03-23 12:57] LABS: Thyroid Stimulating Hormone 1.23 uIU/mL (0.465-4.68)
== END 2025-03-23 23:59 | disposition home or self-care (01) ==
LOC: LAB 11:15
PROVIDERS: PCP Nurse Practitioner Family; Visit Provider Nurse Practitioner
DX: E55.9 Vitamin D deficiency, unspecified (principal); R07.9 Chest pain, unspecified; R06.00 Dyspnea, unspecified; Z68.41 Body mass index [BMI] 40.0-44.9, adult
CPT/HCPCS: 36415; 80048; 80061; 80076; 83735; 84439; 84443; 85025

== ENCOUNTER 2025-03-24 08:06 | Outpatient (CLI) | payer BC, SELFPAY ==
--- NOTE | 2025-03-24 08:00 | CA_ITS ---
APPROVED REPORT EXAM: Comprehensive 2D, Doppler, and color-flow Echocardiogram Ecommerce Marketing Specialist: Myrna Coats RVT Ht: 5 ft 9 in Wt: 281lbs BSA: 2.39 BP: 115/65 mmHg Indications: CHEST PAIN 2D Dimensions LA Volume 49.70 mL LA Volume Index 20.79 mL/m2 (M/F) 16-34 M-Mode Dimensions RVDd 2.13 cm (0.9-2.6) LA Diam 3.62 cm (1.9-4.0) LVDd 5.85 cm (3.5-5.7) LVDs 3.53 cm (3.5-5.7) IVSd 0.84 cm (0.6-1.1) PWd 0.42 cm (0.6-1.1) EF (Teich) 69.50% FS 39.70% EDV (Teich) 169.90 mL ESV (Teich) 51.90 mL LV Diastology E Decel Time 193 (160-240 msec) E/A Ratio 2.4 Aortic Valve MICHELE Index 1.29 cm2/m2 AoV Peak Ricardo. 129.0 (50-130 cm/s) AO Peak GR. 6.70 mmHg AO Mean GR. 3.60 (<5 mmHg) AO VTI 25.6 (18-25 cm) MICHELE (VTI) 3.15 (2.5-4.5 cm2) Mitral Valve MV E Max Ricardo. 93.0 (40-130 cm/s) MV A Velocity 38.0 (40-130 cm/s) E/A Ratio 2.45 MV PHT 57.0 ms Pulmonary Valve PV Peak Velocity 85.0 (50-150 cm/s) Left Ventricle The left ventricle is normal size. Left ventricular systolic function is normal. The left ventricular ejection fraction is within the normal range. There is normal left ventricular wall thickness. There is normal LV segmental wall motion. The left ventricular diastolic function is normal. LVEF is 55% Right Ventricle The right ventricle is normal size. The right ventricular systolic function is normal. Atria The left atrium size is normal. The right atrium size is normal. There is no color Doppler evidence of interatrial shunt. Aortic Valve The aortic valve opens well. There is no hemodynamically significant aortic valvular stenosis. No aortic regurgitation is present. Mitral Valve The mitral valve is normal in structure. No evidence of mitral valve stenosis. Trace mitral regurgitation is present. Tricuspid Valve The tricuspid valve leaflets are thin and pliable. Trace tricuspid regurgitation. There is insufficient TR jet to estimate RVSP. Pulmonic Valve The pulmonary valve is grossly normal in structure. Trace pulmonic valve regurgitation is present. Great Vessels The aortic root is normal in size. IVC is normal in size and collapses >50% with inspiration. Pericardium There is no pericardial effusion. Other Information Study Quality: Adequate Conclusion Normal biventricular systolic function. No significant valvular stenosis or regurgitation. Electronically signed by : Keshia Dorsey MD 03/25/2025 12:58:59
== END 2025-03-24 23:59 | disposition home or self-care (01) ==
LOC: RT 08:07
PROVIDERS: PCP Nurse Practitioner Family; Visit Provider Nurse Practitioner Family
DX: R07.9 Chest pain, unspecified (principal); R06.00 Dyspnea, unspecified; E66.9 Obesity, unspecified; Z68.41 Body mass index [BMI] 40.0-44.9, adult
CPT/HCPCS: 93306

== ENCOUNTER 2025-04-07 10:48 | Outpatient (CLI) | payer BC, SELFPAY ==
--- OUTSIDE RECORDS SUMMARY | 2024-03-17 09:30 | XMS_ITS ---
Author Organization [facility] edicine Address [address] [place] [address] Care Team Providers Care Radio Technician Name Role Phone Camila Benavides Unavailable [phone] Allergies No Known Allergies Results Component Value Reference Range Notes Urinalysis, Routine Reviewed date:03/17/2024 01:42:10 PM Interpretation: Performing Lab: Notes/Report: Urine-Color yellow Appearance clear Specific [place] >=1.030 pH 6.5 Glucose neg Protein neg Occult Blood neg Bilirubin neg Urobilinogen,Semi-Qn 1.0 Nitrite, Urine neg Ketones neg WBC Esterase neg REASON FOR VISIT GT-IBC PRE EMP PHYS w/ PDT no DOT D/S, * Mojica Pre Emp NO DRUG SCREEN, * Mojica Pre-Employment Social History Tobacco Use: Social History Observation Description Date Details (start date - stop date) Unknown Smoking Question Answer Notes Smoking Status: Uses tobacco in other forms vape s Vital Signs Temperature 97.4 degrees Fahrenheit 03/17/20 24 Heart Rate 91 /min 03/17/2024 Blood pressure systolic 119 mm Hg 03/17/20 24 Blood pressure diastolic 68 mm Hg 024 Height 70 in 03/17/2024 Weight 279.2 lbs 03/17/2024 BMI 40.06 kg/m2 03/17/2024 Respiratory Rate 18 /min 03/17/2024 Oximetry 98 % 03/17/2024 Procedures Procedure Date Ordered Date Performed Result Body Sit e Vision Screening 03/17/2024 N/A BTE 03/17/2024 03/17/2024 N/A Hearing Screening 03/17/2024 03/17/2024 N/A Encounters Encounter Location Date Provider Diagnosis [facility] [address] [place] [address] 03/17/2024 Camila Benavides Pre-employment health screening examination Z02.1 Assessments Encounter Date Diagnosis (ICD Code) Assessment Notes Treatment Notes Treatment Clinical Notes Section Notes 03/17/2024 Pre-employment health screening examination (ICD-10 - Z02.1) Plan Of Treatment Pending Test Test Name Order Date Vision Screening 03/17/2024 BTE 03/17/2024 Next Appt Details Follow Up: Clear for MIK , R geni: Progress Notes * Jori FERNANDES HDOB:2000 (24 yo M)Acc No.[id number]:03/17/2024 PRE EMP HWM Patient: Jori GAINES Provider: Chau Benavides NP :2000 A ge:23 Y S ex:Male Date:03/17/2024 Address:[address] [place] [id number] Subjective: * Chief Complaints: * 1 . TG-IBC DH PRE EMP PHYS w/ PDT no DOT D/S. 2. * Mojica Pre Emp NO DRUG SCREEN. 3. * Mojica Pre-Employment. * HPI: A DDITIONAL COMPLAINTS: Patient presents for pre-employment physical evaluation. Medical history forms and any accompanying health records are reviewed with the patients. * ROS: G eneral/Constitutional: Denies C hange in appetite. D enies C hills. D enies F atigue. D enies F ever. D enies H eadache. D enies L ightheadedness. D enies S leep disturbance. D katie Review: Reviewed H ealth Records. R espiratory: Denies B reathing pattern. D enies C hest pain.?Denies C ough. D enies H emoptysis. D enies P ain with inspiration. D enies S hortness of breath at rest. D enies S hortness of breath with exertion. D enies?Sputum production. D enies W heezing. G astrointestinal: Denies A bdominal pain. D enies B lood in stool.?Denies C hange in bowel habits. D enies C onstipation. D enies D iarrhea.?Denies D ifficulty swallowing. D enies N ausea. D enies V omiting. ? N eurologic: Denies B alance difficulty. D enies C oordination.?Denies D ifficulty speaking. D enies D izziness. D enies F ainting. D enies G ait abnormality. D enies I rritability. D enies L oss of strength. D enies L oss of use of extremity. D enies L ow back pain. D enies P ain. D enies S eizures. D enies T ingling/Numbness. D enies T ransient loss of vision.?Denies T remor. P sychiatric: Denies A nxiety. D enies D epressed mood. D enies D ifficulty sleeping. D enies E ating disorder. D enies L oss of appetite.?Denies S tressors. D enies S ubstance abuse. D enies S uicidal thoughts. * Medical History: M edical History Verified. * Surgical History: b roken right elbow with [employer]. * Hospitalization/Major Diagno stic Procedure: D enies Past Hospitalization. * Family History: N on-Contributory. * Social History: T obacco Use: S moking S moking Status: U ses tobacco in other forms vapes D rugs/Alcohol: A lcohol Use H ow often do you drink? O ccassionally * Medications: N one * Allergies: N .K.D.A. Objective: * Vitals: T emp:97.4, HR:91, BP:119/68mm Hg, Ht: 70, Wt: 279.2, BMI:40.06Index, RR: 18, Oxygen sat %:98%. * Examination: G eneral Examination: GENERAL APPEARANCE: i n no acute distress, well developed, well nourished. HEAD: n ormocephalic, atraumatic. EYES: p upils equal, round, reactive to light and accommodation. EARS: n ormal. ORAL CAVITY: m ucosa moist. THROAT: c lear. NECK/THYROID: n elida supple, full range of motion, no cervical lymphadenopathy. SKIN: n o suspicious lesions, warm and dry. HEART: n o murmurs, regular rate and rhythm, S1, S2 normal.? LUNGS: c lear to auscultation bilaterally. ABDOMEN: n ormal, bowel sounds present, soft, nontender, nondistended, no hernias noted on exam.. EXTREMITIES: n o clubbing, cyanosis, or edema, full range of motion, no painful joints. NEUROLOGIC: n onfocal, motor strength normal upper and lower extremities, sensory exam intact. Assessment: * Assessment: 1. P re-employment health screening examination - Z02.1 (Primary) Plan: * Treatment: * Labs: * L ab: Urinalysis, Routine (Collection Date & Time - 03/17/2024) Value Reference Range U rine-Color yellow * A ppearance clear * S pecific [place] >=1.030 * p H 6.5 * G lucose neg * P rotein neg * O ccult Blood neg * B ilirubin neg * U robilinogen,Semi-Qn 1.0 * N itrite, Urine neg * K etones neg * W BC Esterase neg * Glendy Burris 03/17/2024 01 :35:35 PM CDT > * Procedure Orders: * P rocedure: Vision Screening ?Procedure: Hearing Screening (Performed Date - 03/17/2024)* Value Reference Range H z 500 Left 10 * H z 1000 Left 5 * H z 2000 Left 10 * H z 3000 Left 5 * H z 4000 Left 10 * H z 6000 Left 15 * H z 8000 Left 30 * H z 500 Right 5 * H z 1000 Right 5 * H z 2000 Right 5 * H z 3000 Right 5 * H z 4000 Right 10 * H z 6000 Right 5 * H z 8000 Right 25 * Glendy Burris 03/17/2024 01 :36:33 PM CDT >pass unaided ?Procedure: BTE (Performed Date - 03/17/2024)* Value Reference Range B TE Results Pass * Leopoldo Mas 03/17/2024 04 :46:05 PM CDT >pass * Procedure Codes: P HYSI Physical Exam, BTE Physical Demands Test, HEARS HEARING SCREEN, VISIS VISION SCREEN, 29139 URINALYSIS, AUTO, W/O SCOPE, Modifiers: QW * Follow Up: Bj morales for PDT * Billing Information: * Visit Code: * Procedure Codes: PHYSI Physical Exam. BTE Physical Demands Test. HEARS HEARING SCREEN. VISIS VISION SCREEN. 87184 URINALYSIS, AUTO, W/O SCOPE. Modifiers: QW * Electronic signature of Yasemin Benavides on 04/07/2025 at 09:52 AM CDT Sign off status: Pending * Provider: Chau Benavides, PROCESSOR SOLID PROPELLANT Date: 03/17/2024 Generated for Kennedii ng/Famyrag/eTransmitting on: 04/07/2025 09:52 AM CDT History and Physical Notes * HPI (History of Present Illness) Category Sub-Category Detail Notes Category Not es ADDITIONAL COMPLAINTS Patien t presents for pre-employment physical evaluation. Medical history forms and any accompanying health records are reviewed with the patients. Examination Category Sub-Category Detail Notes Category Not es General Examination GENERAL APPEARANCE: in no ac [place] distress, well developed, well nourished HEAD: normocephalic, atrau matic EYES: pupils equal, round, reactive to light and accommodation EARS: normal THROAT: clear NECK/THYROID: neck supple, full ra nge of motion, no cervical lymphadenopathy HEART: no murmurs, regular rate and rhythm, S1, S2 normal LUNGS: clear to auscultatio n bilaterally ABDOMEN: normal, bowel sounds present, soft, nontender, nondistended, no hernias noted on exam. NEUROLOGIC: nonfocal, motor stre ngth normal upper and lower extremities, sensory exam intact SKIN: no suspicious lesion s, warm and dry EXTREMITIES: no clubbing, cyanosi s, or edema, full range of motion, no painful joints ORAL CAVITY: mucosa moist
--- OUTSIDE RECORDS SUMMARY | 2025-04-07 10:52 | XMS_ITS | Clinical Summary ---
Author Organization [facility] Address [address] [place] [address] Care Team Providers Care Fibre Optics Jointer Name Role Phone Masoud Figueroa M.D. Primary Care Provider [phone] [phone] Source Comments [facility] is fully rolled out with thefollowing exceptions:General Clinical Research [facility] Social History Tobacco Use Types Packs/Day [...] to complete this topic Insurance MINDA BRASWELL [facility] Address: [facility] [id number] [place] [address] Care Teams Fibre Optics Jointer Relationship Specialty Start Date End Date Masoud Figueroa M.D. [address] [place] [address] [address] [place] [address] PCP - General 07/16/08
--- OUTSIDE RECORDS SUMMARY | 2025-04-07 10:52 | XMS_ITS | Patient Health Record ---
Author Organization [facility] Address [address] [place] [address] Support Name Relationship Address Phone Jori Gonzalez Guarantor Unknown [phone] Allergies No Known Allergies Reason For Referral No Information Social History Tobacco Use: Social History Observation Description Date Details (start date - stop date) Unknown Smoking Question Answer Notes Smoking Status: Uses tobacco in other forms vape s Plan Of Treatment Pending Test Test Name Order Date Vision Screening 03/17/2024 BTE 03/17/2024 Insurance Providers Payer Name Payer Address Payer Phone Subscriber Number Group Number Insured Name Patient Relationship to Insured Coverage Start Date Coverage End Date Mojica Pre-Emp [place] MARLON Santos/Gregg Jori Gonzalez Self - patient is the insured Medical (General) History Surgical History Surgery Date(Month/Year) broken right elbow with plate high schoo l
[2025-04-07 11:00] VITALS: BP 130/66; BP 157/83; PULSE 67; RESP 14
--- NOTE | 2025-04-07 11:00 | CA_ITS ---
APPROVED REPORT Exam: Exercise Treadmill Technologist: [place] Cha Stress Nurse: Heavenly Mead Ht: 5 ft 9 in Wt: 281 lbs BSA: 2.39 m2 HR: 67 bpm BP: 130/66 mmHg Medical History Medical History: Smoking Medications: Vit D3, Famoridine, Polyethylene Glycol 3350 Allergies: No known drug allergies Cardiac Risk Factors: Smoking Stress Test Details Test: Exercise stress testing was performed using a He protocol. HR Resting HR: 67 bpm Max Heart Rate (APMHR): 197.078958 bpm Max HR Achieved: 166 bpm Target HR (85% APMHR): 167.965996 bpm % of APMHR: 84.26 Recovery HR: 95 bpm BP Resting BP: 130.0/66.0 mmHg Max BP: 157.0/83.0 mmHg Recovery BP: 137.0/65.0 mmHg ECG Stress ECG Conclusion Test stopped at 4:56 due to dyspnea/leg pain Max HR: 166 Max BP: 157/83 % of PM: 84% Mets: 7.1 Test stopped due to: Dyspnea/Leg pain PVC Less than 0.5mm upsloping ST segment changes Restrepo Treadmill score +4 Electronically signed by : Keshia Dorsey MD 04/08/2025 17:18:30
== END 2025-04-07 23:59 | disposition home or self-care (01) ==
LOC: RT 10:48
PROVIDERS: PCP Nurse Practitioner Family; Visit Provider Nurse Practitioner
DX: I49.3 Ventricular premature depolarization (principal); R94.31 Abnormal electrocardiogram [ECG] [EKG]
CPT/HCPCS: 93017; 93018